=== PATIENT | male | born 1955 | race African-American/Black ===

== ENCOUNTER 2020-12-22 17:30 | Emergency (ER) | payer MEDICARE, MEDICAID ==
[~2020-12-22] VITALS: Ht 185.4 cm; Wt 80.0 kg
[~2020-12-22 17:30] MED LIST: AMLO10TA80 PO; ENAL20TA18 PO; GLYB5TAB7 PO; LOVA40TA73 PO; METF-416 PO
[2020-12-22] MEDS ORDERED: FLUORESCEIN SODIUM 1MG/STRIP LEFTEYE ONE (18:45)
[2020-12-22] MEDS ORDERED: TETRACAINE 0.5% OPHTH DROPS 4ML LEFTEYE ONE (18:45)
[2020-12-22] MEDS ORDERED: HYDROCODONE/ACETAMINOPHEN 5/325MG TABLET PO ONE (19:30)
[2020-12-22] MEDS ORDERED: IBUPROFEN 600MG TABLET PO ONE (19:30)
[2020-12-22] MEDS ORDERED: VALA100044 MT (20:36)
[2020-12-22] MEDS ORDERED: NAP5EC MT (20:36)
[2020-12-22] MEDS ORDERED: PRED2.5T4 MT ×3 (20:42→20:45)
[2020-12-22] MEDS ORDERED: PRED5TAB MT ×3 (20:42→20:45)
[2020-12-22] MEDS ORDERED: PRED10TA MT (20:42)
[2020-12-22] MEDS ORDERED: HYDR-4001 MT (21:22)
[2020-12-22 21:30] VITALS: BP 144/87
== END 2020-12-22 21:24 | disposition home or self-care (01) ==
LOC: ER 17:30
DX: B02.9 Zoster without complications (principal); E11.9 Type 2 diabetes mellitus without complications; I10 Essential (primary) hypertension; Z79.899 Other long term (current) drug therapy
CPT/HCPCS: 99283